=== PATIENT | female | born 1945 | race Caucasian/White ===

== ENCOUNTER → 2016-08-01 | Outpatient (CLI) | payer OTHER, MEDICARE | LOC: BRMIMAGING 08:24 | PROVIDERS: ATTEND Internal Medicine | DX: Z13.820 Encounter for screening for osteoporosis (principal); M81.0 Age-related osteoporosis without current pathological fracture; Z78.0 Asymptomatic menopausal state ==

== ENCOUNTER 2017-02-08 18:15 | Emergency (ER) | payer OTHER, MEDICARE ==
--- NOTE | 2017-02-08 18:39 | EDPHY ---
H & P Stated Complaint: cough/congestion for 10 days, hard time sleeping Time Seen by Provider: 02/08/17 18:21 HPI/ROS: CHIEF COMPLAINT: Cough and runny nose History by patient HISTORY OF PRESENT ILLNESS: 72-year-old woman with a history of hypertension high cholesterol and depression presents complaining of 10 days of persistent cough which is sometimes dry but occasionally productive of green sputum, runny nose and general fatigue. She denies any fever, chills, nausea or vomiting. She denies any chest pain or difficulty breathing but does state when she starts coughing she often can't stop. She has tried taking Benadryl and Flonase with no relief. She denies any leg pain or swelling. She does have a history of seasonal allergies. She also states that they have a new dog for the past year she wonders that is contributing. Patient quit smoking 50 years ago. The patient has been on lisinopril for the past 4 months but she feels her cough began association with a runny nose 10 days ago. REVIEW OF SYSTEMS: As in HPI, and all other systems reviewed and are negative Source: Patient - Personal History Current Tetanus/Diphtheria Vaccine: Yes Current Tetanus Diphtheria and Acellular Pertussis (TDAP): Yes Tetanus Vaccine Date: < 10 years - Medical/Surgical History Hx Asthma: No Hx Chronic Respiratory Disease: No Hx Diabetes: No Hx Cardiac Disease: Yes Hx Renal Disease: No Hx Cirrhosis: No Hx Alcoholism: No Hx HIV/AIDS: No Hx Splenectomy or Spleen Trauma: No Other PMH: HTN, hyperlipidemia. Anxiety - Social History Smoking Status: Former smoker - Physical Exam Exam: General Appearance: Alert, comfortable, well appearing. Eyes: Pupils equal and round no pallor or injection. ENT, Mouth: Mucous membranes moist. Oropharynx is clear with no tonsillar swelling or injection, TMs are clear bilaterally Respiratory: Normal, effort, lungs are clear to auscultation. No wheezes, rales or rhonchi. Cardiovascular: Tachycardic rate and regular rhythm. S1, S2, 3/6 systolic murmur Gastrointestinal: Abdomen is soft and nontender, no masses, bowel sounds normal. Back: No CVA tenderness, no bony tenderness Neurological: Awake, alert and oriented x 3, no pronator drift, normal gait, no pronator drift Skin: Warm and dry, no rashes. Musculoskeletal: No deformities or tenderness. Extremitie:s full range of motion, no edema, no tenderness, no splinter hemorrhages Psychiatric: Patient has normal affect, there is no agitation. Constitutional: Initial Vital Signs Temperature (C) 36.9 C 02/08/17 18:23 Heart Rate 105 H 02/08/17 18:23 Respiratory Rate 20 02/08/17 18:23 Blood Pressure 125/84 H 02/08/17 18:23 O2 Sat (%) 92 02/08/17 18:23 O2 Delivery Mode Room Air Allergies/Adverse Reactions: Penicillins Allergy (Verified 02/08/17 18:23) Sulfa (Sulfonamide Antibiotics) Allergy (Verified 02/08/17 18:23) Home Medications: Medication Instructions Recorded Albuterol [Proventil Inhaler HFA 1 - 2 puffs IH Q4H #1 mdi 02/08/17 (*)] Atorvastatin Calcium 02/08/17 Lisinopril 02/08/17 Wellbutrin Sr 02/08/17 Medical Decision Making - Diagnostics Imaging: I viewed and interpreted images myself ED Course/Re-evaluation: 72-year-old woman presents complaining of cough and runny nose times 10 days with incidental finding of heart murmur on exam, which she says is new. ECG was done which showed sinus tachycardia rate of 105 with normal axis, normal intervals and no ST segment abnormalities no evidence of acute ischemia or arrhythmia. Chest x-ray was unremarkable. On re-examine the patient's heart rate had decreased but the murmur was persistent. There is no evidence of congestive heart failure or hemodynamic compromise. Patient is primarily concerned about her ongoing cough as it has been disturbing her sleep. We will give a trial of albuterol for the cough as it does have a wheezy component on exam. Regarding her murmur, There has been no history of syncope or exertional symptoms. I am recommending close follow-up for the patient's murmur with her primary care physician or a perforator operator oil well. We also discussed return precautions including but not limited to fever, nausea vomiting, difficulty breathing, chest pain or new problems or concerns. Also noticed the patient is on Ativan twice a day in conjunction with her Wellbutrin for her anxiety for the past year. This may be contributing to her fatigue and we discussed the benzodiazepines were not ideal medications for older patients that she should discuss with her primary care physician getting off Ativan and trying cognitive behavioral therapy or other non benzodiazepine medications. I discussed all these issues with the patient and her . Departure - Departure Disposition: Home, Routine, Self-Care Clinical Impression: Heart murmur Upper respiratory infection Qualifiers: URI type: unspecified URI Qualified Code(s): J06.9 - Acute upper respiratory infection, unspecified Condition: Good Instructions: Upper Respiratory Infection (ED) Additional Instructions: You were seen by Dr. Sharyn Hunt today. For your cough try the albuterol inhaler. Try also sleeping with a humidifier. Please return if you develops a fever, difficulty breathing, nausea vomiting or any other worsening. You have a heart murmur on exam today. This needs further investigation. Please follow up with Dr. Bain as soon as possible to discuss this heart murmur. Also discuss with her stopping your Ativan as this may be contributing to your fatigue. Consider trying cognitive behavioral therapy for your anxiety. Return for any worsening or new concerns. Referrals: Emilie Bain MD [Primary Care Provider] - As per Instructions Prescriptions: Albuterol [Proventil Inhaler HFA (*)] 1 - 2 puffs IH Q4H #1 mdi
--- NOTE | 2017-02-08 18:44 | CPEKG ---
Heart Rate: 105 RR Interval: 571 P-R Interval: 152 QRSD Interval: 72 QT Interval: 352 QTC Interval: 466 P [place]: 44 QRS [place]: 25 T Wave [place]: 41 EKG Severity - BORDERLINE ECG - EKG Impression: SINUS TACHYCARDIA EKG Impression: BORDERLINE T WAVE ABNORMALITIES Electronically Signed By: Fritz Tierney 10-Feb-2017 08:56:30
[2017-02-08 19:14] VITALS: RESP 18
[2017-02-08 19:58] VITALS: BP 133/67; PULSE 82; TEMP 98.2; O2SAT 92
== END 2017-02-08 20:01 | disposition home or self-care (01) ==
LOC: CED 18:15
DX: J06.9 Acute upper respiratory infection, unspecified (principal); R01.1 Cardiac murmur, unspecified; Z87.891 Personal history of nicotine dependence
CPT/HCPCS: 71020-PO

== ENCOUNTER 2017-08-15 07:32 | Emergency (ER) | payer OTHER, MEDICARE ==
[2017-08-15 07:42] VITALS: BP 143/88; PULSE 80; RESP 16; TEMP 97.5; O2SAT 94
[2017-08-15] MEDS ORDERED: PHENAZOPYRIDINE HCL 200 MG TAB PO ONE (08:20)
--- NOTE | 2017-08-15 08:29 | EDPHY ---
H & P Time Seen by Provider: 08/15/17 07:40 HPI/ROS: CHIEF COMPLAINT: Possible urinary tract infection, postnasal drip HISTORY OF PRESENT ILLNESS: Patient states that she has had urinary symptoms since last weekend. She describes it as a low dull ache. [place] mostly in her low back. She describes some urinary irritation at the end of her urinary stream. She has had urinary tract infections before and she has a cystocele. She started nitrofurantoin yesterday and has taken 2 doses. This prescription was written by her primary care as she is prone to urinary tract infections however has had none since last September. No fevers or chills. No nausea or vomiting. Possibly some mild diarrhea. Also complaining of some postnasal drip for which she takes Zyrtec. She denies any wheezing. She denies sore throat. She has had no chest pain or shortness of breath. She says she is going on a cruise to [place] and through the [facility] starting tomorrow and was unable to get in to see her primary care physician. Contents of 10 point review of systems otherwise negative except for what is mentioned in HPI. General Appearance: Alert, no distress. Eyes: Pupils equal and round no pallor or injection. ENT, Mouth: Mucous membranes moist. Respiratory: There are no retractions, lungs are clear to auscultation. Cardiovascular: Regular rate and rhythm. Gastrointestinal: Abdomen is soft and nontender, no masses, bowel sounds normal. No CVA tenderness Neurological: Awake and alert, movement all 4 extremities, no focal deficits. Skin: Warm and dry, no rashes. Musculoskeletal: Neck is supple nontender. Extremities are symmetrical, full range of motion, no edema. Psychiatric: Patient is oriented X 3, there is no agitation. Medical/surgical history: Hypertension, high cholesterol, depression Social history: Nonsmoker. Lives both in [place] and part-time in [facility]. Primary care doctor Emilie Woods. Smoking Status: Former smoker Constitutional: Initial Vital Signs Temperature (C) 36.4 C 08/15/17 07:39 Heart Rate 80 08/15/17 07:39 Respiratory Rate 16 08/15/17 07:39 Blood Pressure 143/88 H 08/15/17 07:39 O2 Sat (%) 94 08/15/17 07:39 O2 Delivery Mode Room Air Allergies/Adverse Reactions: Penicillins Allergy (Verified 08/15/17 07:42) Sulfa (Sulfonamide Antibiotics) Allergy (Verified 08/15/17 07:43) Dyspnea Home Medications: Medication Instructions Recorded Albuterol [Proventil Inhaler HFA 1 - 2 puffs IH Q4H #1 mdi 02/08/17 (*)] Atorvastatin Calcium 02/08/17 Lisinopril 02/08/17 Wellbutrin Sr 02/08/17 Aspirin 08/15/17 Cephalexin [Keflex] 500 mg PO Q6H #28 cap 08/15/17 Vitamin D2 08/15/17 Medical Decision Making Differential Diagnosis: Differential diagnosis includes but is not limited to urinary tract infection, pyelonephritis, gastroenteritis, musculoskeletal back pain, bronchitis. Patient 's UA consistent with urinary tract infection and she has already initiated antibiotic treatment. Discussed the continuation of her nitrofurantoin until all pills are complete. I did write a prescription for Keflex, which she has tolerated in the past despite penicillin allergy, for use while she is on vacation in [place]. Also recommended [id number] Pyridium for urinary symptoms. No evidence of febrile illness, nausea vomiting, acute abdomen, respiratory distress or pneumonia. Stable for discharge. - Data Points Laboratory Results: 08/15/17 08:00 Urine Color YELLOW Urine Appearance HAZY Urine pH 5.5 (5.0-7.5) Ur Specific [place] >= 1.030 (1.002-1.030) Urine Protein NEGATIVE (NEGATIVE) Urine Ketones NEGATIVE (NEGATIVE) Urine Blood 2+ H (NEGATIVE) Urine Nitrate NEGATIVE (NEGATIVE) Urine Bilirubin NEGATIVE (NEGATIVE) Urine Urobilinogen 0.2 EU EU (0.2-1.0) Ur Leukocyte Esterase 1+ H (NEGATIVE) Urine RBC 0-1 /hpf /hpf (0-3) Urine WBC 1-3 /hpf /hpf (0-3) Ur Epithelial Cells 1+ /lpf /lpf (NONE-1+) Urine Bacteria TRACE /hpf H /hpf (NONE SEEN) Urine Glucose NEGATIVE (NEGATIVE) Medications Given: Discontinued Medications Phenazopyridine HCl (Pyridium) 200 mg PO EDNOW ONE Stop: 08/15/17 08:21 Last Admin: 08/15/17 08:37 Dose: 200 mg Departure - Departure Condition: Good Instructions: Urinary Tract Infection in Women (DC) Additional Instructions: Stay well hydrated, use azo Standard as needed [id number] for discomfort from you urinary tract infection. Ibuprofen is also helpful. I wrote you a prescription for Keflex to take with you on your trip. This would be ineffective choice if he developed a new urinary tract infection or if the 1st course of antibiotics is not effective. Finish your prescription for nitrofurantoin that you have already started however. Seek further medical care if you developed nausea, vomiting, fevers or more severe back pain. Referrals: Emilie Bain MD [Primary Care Provider] - As per Instructions Prescriptions: Cephalexin [Keflex] 500 mg PO Q6H #28 cap
== END 2017-08-15 08:37 | disposition home or self-care (01) ==
LOC: CED 07:32
DX: N34.1 Nonspecific urethritis (principal); R05 Cough; I10 Essential (primary) hypertension; B96.89 Other specified bacterial agents as the cause of diseases classified elsewhere; Z79.82 Long term (current) use of aspirin; Z87.891 Personal history of nicotine dependence
CPT/HCPCS: 81003-PO; 81015-PO